=== PATIENT | male | born 1990 | race Caucasian/White ===

== ENCOUNTER 2018-05-29 10:39 | Emergency (ER) | payer OTHER, MEDICAID, SELFPAY ==
[2018-05-29 10:45] VITALS: BP 131/111; PULSE 115; RESP 25; TEMP 36.4; O2SAT 100; BMI 22.4
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
[2018-05-29 11:00] VITALS: BP 120/97; PULSE 118; RESP 20; O2SAT 99
[2018-05-29] MEDS: SODIUM CHLORIDE 0.9% 1,000 ML 1000 ML IV ×2 (11:08→11:43)
[2018-05-29 11:17] LABS: Add Manual Diff / Slide Review NO; Basophils Absolute Auto 0 /uL (0-100); Basophils Percent Auto 0.3 % (0-2); Eosinophils Absolute Auto 0 /uL (0-450); Eosinophils Percent Auto 0.1 % (2-4); Hemoglobin 15.3 g/dL (13.5-17.5); Lymphocytes Absolute Auto 800 /uL (1100-4500); Lymphocytes Percent Auto 8.8 % (25-40); Mean Corpuscular HGB Conc 34.9 % (30-36); Mean Corpuscular Hemoglobin 30.2 PG (26-34); Mean Corpuscular Volume 86.5 fL (80-100); Monocytes Absolute Auto 500 /uL (0-900); Monocytes Percent Auto 5.5 % (3-14); Neutrophils Absolute Auto 8000 /uL (1500-7000); Neutrophils Percent Auto 85.3 % (50-75); Platelet Count 201 X10^3/uL (150-400); Red Blood Cell Count 5.09 X10^6/uL (4.5-5.9); Red Cell Distribution Width 13.9 % (11.6-14.8); White Blood Cell Count 9.4 X10^3/uL (4.5-11.0)
[2018-05-29 11:26] LABS: Acetaminophen < 10 ug/mL (10-30); Alanine Aminotransferase 308 IU/L (21-72); Albumin 5.2 g/dL (3.5-5.0); Albumin Globulin Ratio 1.6 (1.0-2.8); Alkaline Phosphatase 74 U/L (38-126); Aspartate Aminotransferase 406 IU/L (17-59); BUN Creatinine Ratio 14.5 (6-22); Bilirubin Total 1.2 mg/dL (0.2-1.3); Blood Urea Nitrogen 16 mg/dL (9-20); Calcium 9.8 mg/dL (8.4-10.2); Carbon Dioxide 21 mmol/L (22-32); Chloride 101 mmol/L (98-107); Estimated Glomerular Filt Rate > 60.0 mL/min (>60); Ethanol (ETOH) < 10 mg/dL; Globulin 3.3 g/dL (1.7-4.1); Glucose 181 mg/dL (70-100); HEMOLYSIS < 15 (0-50); Potassium 5.6 mmol/L (3.4-5.1); Salicylate < 1.0 mg/dL (<20); Sodium 139 mmol/L (137-145); Total Protein 8.5 g/dL (6.3-8.2)
[2018-05-29] MEDS: ONDANSETRON 4 MG/2 ML INJ IV (11:43)
[2018-05-29 12:15] LABS: Urine Amphetamines Positive (Negative); Urine Barbiturates Negative (Negative); Urine Benzodiazepines Negative (Negative); Urine Cocaine Negative (Negative); Urine MDMA Negative (Negative); Urine Methadone Negative (Negative); Urine Methamphetamines Positive (Negative); Urine Morphine/Opi cutoff 2000 Positive (Negative); Urine Oxycodone Negative (Negative); Urine Phencyclidine Negative (Negative); Urine Tetrahydrocannabinol Negative (Negative); Urine Tricyclic Antidepressant Negative (Negative)
[2018-05-29] MEDS: METOCLOPRAMIDE 10 MG/2 ML INJ IV (12:47)
[2018-05-29 13:00] VITALS: BP 108/77; PULSE 101; RESP 12
--- NOTE | 2018-05-29 13:05 | PC.NURSE ---
S/W pt about getting help and back on bipolar meds. He is receptive to getting help
[2018-05-29 13:54] VITALS: BP 96/55; PULSE 94; RESP 11
[2018-05-29 14:30] VITALS: BP 126/77; PULSE 90; RESP 10; O2SAT 97
[2018-05-29 15:07] LABS: Reflexed Lactate in 2 Hours Y
[2018-05-29 15:20] LABS: HEMOLYSIS < 15 (0-50); Potassium 4.4 mmol/L (3.4-5.1)
[2018-05-29 15:23] LABS: Lactate 2HR (Lactic Acid Rflx) 0.9 mmol/L (0.7-2.1)
[2018-05-29 15:41] VITALS: BP 98/58; PULSE 86; RESP 20; O2SAT 98
== END 2018-05-29 15:42 | disposition home or self-care (01) ==
PROVIDERS: Emergency Provider Emergency Medicine; PCP Family Medicine
DX: T40.1X1A Poisoning by heroin, accidental (unintentional), initial encounter (principal)
CPT/HCPCS: 36415; 80053; 80305; 80320; 80329; 83605; 84132; 85025; 96361; 96374; 96375; 99284; G0480; J2405; J2765

== ENCOUNTER 2022-03-10 03:59 | Emergency (ER) | payer OTHER, MEDICAID, SELFPAY ==
[2022-03-10] VITALS (13 sets, daily range): BP systolic 141–163; BP diastolic 75–96; PULSE 76–98; RESP 6–22; TEMP 37; O2SAT 99–100; BMI 23.7
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
[2022-03-10 04:38] LABS: Add Manual Diff / Slide Review NO; Basophils Absolute Auto 0 /uL (0-100); Basophils Percent Auto 0.3 % (0-2); Eosinophils Absolute Auto 0 /uL (0-450); Eosinophils Percent Auto 0.1 % (2-4); Hematocrit 46.5 % (41-53); Hemoglobin 15.4 g/dL (13.5-17.5); Lymphocytes Absolute Auto 1400 /uL (1100-4500); Lymphocytes Percent Auto 9.4 % (25-40); Mean Corpuscular HGB Conc 33.1 % (30-36); Mean Corpuscular Hemoglobin 29.6 PG (26-34); Mean Corpuscular Volume 89.2 fL (80-100); Monocytes Absolute Auto 1000 /uL (0-900); Monocytes Percent Auto 6.9 % (3-14); Neutrophils Absolute Auto 12200 /uL (1500-7000); Neutrophils Percent Auto 83.3 % (50-75); Platelet Count 261 X10^3/uL (150-400); Red Blood Cell Count 5.22 X10^6/uL (4.5-5.9); Red Cell Distribution Width 14.1 % (11.6-14.8); White Blood Cell Count 14.7 X10^3/uL (4.5-11.0)
[2022-03-10 04:47] LABS: INR 1.1 (0.9-1.3); Prothrombin Time 12.8 SECONDS (10.1-12.7)
[2022-03-10 04:51] LABS: Alanine Aminotransferase 42 IU/L (<50); Albumin 4.7 g/dL (3.5-5.0); Albumin Globulin Ratio 1.3 (1.0-2.8); Alkaline Phosphatase 80 U/L (38-126); Aspartate Aminotransferase 38 IU/L (17-59); Bilirubin Total 0.7 mg/dL (0.2-1.3); Blood Urea Nitrogen 10 mg/dL (9-20); Calcium 9.4 mg/dL (8.4-10.2); Carbon Dioxide 26 mmol/L (22-32); Chloride 101 mmol/L (98-107); Creatine Kinase 93 U/L (55-170); Estimated Glomerular Filt Rate > 60 mL/min (>60); Globulin 3.6 g/dL (1.7-4.1); Glucose 101 mg/dL (70-100); HEMOLYSIS < 15 (0-50); Potassium 3.9 mmol/L (3.4-5.1); Sodium 139 mmol/L (137-145); Total Protein 8.3 g/dL (6.3-8.2)
[2022-03-10 04:55] LABS: Lactate (Lactic Acid) 1.7 mmol/L (0.7-2.1)
[2022-03-10] MEDS: TET,DIPH,PERTUSS(ACELL),VAC/PF 0.5 ML SYRINGE IM (05:00)
[2022-03-10 05:02] LABS: Troponin I < 0.012 ng/mL (0.01-0.034)
[2022-03-10] MEDS: CEFAZOLIN VIAL 1 GM in SODIUM CHLORIDE 0.9% 100 ML IV (05:02)
--- NOTE | 2022-03-10 05:15 | PC.NURSE ---
0410: see trauma activation flowsheet
[2022-03-10 05:24] LABS: COVID19 -Nasal RAPID Negative (Negative)
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
[2022-03-10] MEDS: KETOROLAC 30 MG/ML VIAL 15 MG IV (08:23)
[2022-03-10] MEDS: BACITRACIN OINT 0.9 GM PCKT 1 APPLIC TOP (08:24)
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
== END 2022-03-10 08:58 | disposition home or self-care (01) ==
LOC: ED 04:36 → AC 05:10 → ED 08:19
PROVIDERS: Emergency Provider Emergency Medicine; PCP Family Medicine
DX: S01.21XA Laceration without foreign body of nose, initial encounter (principal); S00.83XA Contusion of other part of head, initial encounter; S02.2XXA Fracture of nasal bones, initial encounter for closed fracture; S31.111A Laceration without foreign body of abdominal wall, left upper quadrant without penetration into peritoneal cavity, initial encounter; X99.1XXA Assault by knife, initial encounter; Z23 Encounter for immunization
CPT/HCPCS: 13152; 36415; 70450; 70486; 71045; 71260; 72125; 74177; 80053; 82550; 83605; 84484; 85025; 85610; 86850; 86900; 86901; 87635; 90471; 96365; 96366; 96375; 99285; 99291; 99292; C9803; 90715; J0690; J1885; Q9967

== ENCOUNTER 2022-05-20 11:19 | Emergency (ER) | payer OTHER, MEDICAID, SELFPAY ==
[2022-05-20] VITALS (54 sets, daily range): BP systolic 103–140; BP diastolic 51–84; PULSE 67–110; RESP 11–29; TEMP 36.7; O2SAT 76–100; BMI 25.0
--- NOTE | 2022-05-20 11:42 | DI.RAD.S_ITS ---
PROCEDURE: XR HAND RT MIN 3V INDICATIONS: infection after IV injection eval for FB TECHNIQUE: 3 views of the hand(s) acquired. COMPARISON: None. FINDINGS: Bones: No fractures or dislocations. Carpal bones are normally aligned. No suspicious bony lesions. No bony erosive changes. Soft tissues: Significant dorsal right hand soft tissue swelling is seen. No suspicious soft tissue calcifications. IMPRESSION: No right hand fracture or dislocation. No radiographic evidence of osteomyelitis. Dorsal soft tissue swelling. No radiopaque foreign body is seen. Dictated by: Jony Lou M.D. on 05/20/2022 at 11:12 Approved by: Jony Lou M.D. on 05/20/2022 at 11:15
[2022-05-20 11:47] LABS: Add Manual Diff / Slide Review NO; Basophils Absolute Auto 100 /uL (0-100); Basophils Percent Auto 0.6 % (0-2); Eosinophils Absolute Auto 100 /uL (0-450); Eosinophils Percent Auto 0.6 % (2-4); Hematocrit 45.6 % (41-53); Hemoglobin 15.4 g/dL (13.5-17.5); Lymphocytes Absolute Auto 1900 /uL (1100-4500); Lymphocytes Percent Auto 16.3 % (25-40); Mean Corpuscular HGB Conc 33.7 % (30-36); Mean Corpuscular Hemoglobin 29.3 PG (26-34); Mean Corpuscular Volume 87.1 fL (80-100); Monocytes Absolute Auto 1400 /uL (0-900); Neutrophils Absolute Auto 8100 /uL (1500-7000); Neutrophils Percent Auto 70.5 % (50-75); Platelet Count 224 X10^3/uL (150-400); Red Blood Cell Count 5.23 X10^6/uL (4.5-5.9); Red Cell Distribution Width 13.6 % (11.6-14.8); White Blood Cell Count 11.5 X10^3/uL (4.5-11.0)
--- NOTE | 2022-05-20 11:47 | ED_ITS ---
HPI - Skin/Abscess/Foreign Bdy <Misael Davidson DO - Last Filed: 05/20/22 18:23> General Chief complaint: Skin/Abscess/Foreign Body Stated complaint: RT hand swelling thinks abcess T-2 Time Seen by Provider: 05/20/22 11:29 Source: patient Mode of arrival: Ambulatory Limitations: no limitations History of Present Illness HPI narrative: Patient is a 31-year-old male who is here for evaluation of swelling and redness to his right hand. He states he started noticing it last evening and is progressively worse since then. He thinks that it is because he injected himself with IV drug. He denies any fevers. Has not taken anything for the symptoms prior to arrival. Related Data Home Medications Medication Instructions Recorded Confirmed diazepam 2 mg tablet (Valium) 5 mg PO BID ##0 11/07/16 Previous Rx's Medication Instructions Recorded diazepam 5 mg tablet 5 mg PO BID #5 tabs 11/07/16 amoxicillin 875 mg-potassium 1 tab PO Q12H #20 tabs 03/10/22 clavulanate 125 mg tablet bacitracin 500 unit/gram topical 1 applic topical Q8H #28 grams 03/10/22 ointment ketorolac 10 mg tablet 10 mg PO Q6H PRN pain #14 tabs 03/10/22 ondansetron 4 mg disintegrating 4 mg PO TID-QID PRN nausea and 03/10/22 tablet vomiting #10 tabs clindamycin HCl 300 mg capsule 300 mg PO QID 7 days #28 caps 05/20/22 Allergies Allergy/AdvReac Type Severity Reaction Status Date / Time No Known Drug Allergies Allergy Verified 05/20/22 11:44 Review of Systems <Misael Davidson DO - Last Filed: 05/20/22 18:23> Musculoskeletal Musculoskeletal: Reports system reviewed and no additional complaints, except as documented Integumentary/Breasts Skin/Breast: Reports system reviewed and no additional complaints, except as documented Neurologic Neurologic: Reports system reviewed and no additional complaints, except as documented Hematologic/Lymphatic On Anticoagulants: No Patient History <Misael Davidson DO - Last Filed: 05/20/22 18:23> Medical History Track bailey due to intravenous drug abuse Social History Smoking Status: Current every day smoker substance use type: heroin Smoking Status: Current every day smoker alcohol intake frequency: 3 or more drinks per day Alcohol type: hard liquor Substance Use Type: marijuana, sedatives, IV drugs and methamphetamine Exam <Misael Davidson DO - Last Filed: 05/20/22 18:23> Initial Vital Signs Initial Vital Signs: Vital Signs Temperature 98.1 F 05/20/22 11:20 Pulse Rate 110 H 05/20/22 11:20 Respiratory Rate 20 05/20/22 11:20 Blood Pressure 140/84 05/20/22 11:20 Pulse Oximetry 97 05/20/22 11:20 Oxygen Delivery Method Room Air 05/20/22 11:20 Const General: cooperative, comfortable and No ill appearing HENMT Head: normal to inspection Cardio Pulses: radial pulses present on the right Skin Other: Redness located on the dorsum of the right hand that extends just above the wrist. No blisters. No vesicles. Neuro Sensory Exam: no sensory deficits noted Extrem Other: Redness and swelling to the right hand <Car Knott DO - Last Filed: 05/21/22 02:29> Initial Vital Signs Initial Vital Signs: Vital Signs Temperature 98.1 F 05/20/22 11:20 Pulse Rate 110 H 05/20/22 11:20 Respiratory Rate 20 05/20/22 11:20 Blood Pressure 140/84 05/20/22 11:20 Pulse Oximetry 97 05/20/22 11:20 Oxygen Delivery Method Room Air 05/20/22 11:20 Course <Misael Davidson DO - Last Filed: 05/20/22 18:23> Orders Ordered: Discontinued Medications Acetaminophen (Acetaminophen 325 Mg Tablet) 650 mg PO NOW ONE Stop: 05/20/22 11:53 Last Admin: 05/20/22 12:04 Dose: 650 mg Documented By: CHUCK Acetaminophen (Acetaminophen 325 Mg Tablet) 650 mg PO NOW ONE Stop: 05/21/22 00:39 Last Admin: 05/21/22 00:46 Dose: 650 mg Documented By: PARI Sodium Chloride (Normal Saline 0.9%) 1,000 mls @ 1,000 mls/hr IV BOLUS ONE Stop: 05/20/22 12:33 Last Infusion: 05/20/22 14:07 Dose: 0 mls/hr Documented By: CHUCK(2) Admin: 05/20/22 11:55 Dose: 1,000 mls/hr Documented By: CHUCK Clindamycin Phosphate (Cleocin) 900 mg in 50 mls @ 50 mls/hr IV NOW ONE Stop: 05/20/22 12:43 Last Infusion: 05/20/22 14:07 Dose: 0 mls/hr Documented By: CHUCK(2) Admin: 05/20/22 11:55 Dose: 50 mls/hr Documented By: CHUCK Phenobarbital (Phenobarbital 65 Mg/Ml Vial) 260 mg IV NOW ONE Stop: 05/20/22 15:49 Last Admin: 05/20/22 16:25 Dose: 260 mg Documented By: CHUCK Vital Signs Vital signs: Vital Signs - 8 hr 05/20/22 18:30 05/20/22 18:30 05/20/22 18:45 Pulse Rate 78 Respiratory Rate 19 Blood Pressure 111/56 L 115/53 L Pulse Oximetry 100 05/20/22 18:45 05/20/22 19:00 05/20/22 19:00 Pulse Rate 79 77 Respiratory Rate 20 15 Blood Pressure 115/58 L Pulse Oximetry 98 92 05/20/22 19:15 05/20/22 19:15 05/20/22 19:30 Pulse Rate 80 Respiratory Rate 16 Blood Pressure 103/51 L 114/72 Pulse Oximetry 76 L 05/20/22 19:30 05/20/22 19:45 05/20/22 19:45 Pulse Rate 76 78 Respiratory Rate 29 H 14 Blood Pressure 107/53 L Pulse Oximetry 99 97 05/20/22 20:00 05/20/22 20:00 05/20/22 20:15 Pulse Rate 74 74 Respiratory Rate 14 16 Blood Pressure 121/58 L Pulse Oximetry 97 98 05/20/22 20:15 05/20/22 20:30 05/20/22 20:30 Pulse Rate 77 Respiratory Rate 13 Blood Pressure 130/62 122/65 Pulse Oximetry 97 05/20/22 20:45 05/20/22 20:45 05/20/22 21:00 Pulse Rate 71 Respiratory Rate 17 Blood Pressure 121/62 119/62 Pulse Oximetry 98 05/20/22 21:00 05/20/22 21:15 05/20/22 21:15 Pulse Rate 70 70 Respiratory Rate 13 13 Blood Pressure 135/61 Pulse Oximetry 98 99 05/20/22 21:30 05/20/22 21:30 05/20/22 21:45 Pulse Rate 67 80 Respiratory Rate 13 14 Blood Pressure 109/55 L Pulse Oximetry 99 99 05/20/22 21:45 05/20/22 22:00 05/20/22 22:00 Pulse Rate 79 Respiratory Rate 13 Blood Pressure 124/70 123/76 Pulse Oximetry 99 05/20/22 22:15 05/20/22 22:15 05/20/22 22:30 Pulse Rate 80 Respiratory Rate 11 L Blood Pressure 128/77 126/75 Pulse Oximetry 99 05/20/22 22:30 05/20/22 22:45 05/20/22 22:45 Pulse Rate 70 70 Respiratory Rate 13 14 Blood Pressure 128/76 Pulse Oximetry 97 98 05/20/22 23:00 05/20/22 23:00 05/20/22 23:15 Pulse Rate 74 75 Respiratory Rate 13 18 Blood Pressure 125/75 Pulse Oximetry 99 98 05/20/22 23:15 05/20/22 23:30 05/20/22 23:30 Pulse Rate 70 Respiratory Rate 13 Blood Pressure 128/75 124/80 Pulse Oximetry 98 05/20/22 23:45 05/20/22 23:45 05/21/22 00:00 Pulse Rate 76 Respiratory Rate 17 Blood Pressure 127/77 122/77 Pulse Oximetry 98 05/21/22 00:00 05/21/22 00:15 05/21/22 00:15 Pulse Rate 73 87 Respiratory Rate 16 19 Blood Pressure 130/82 Pulse Oximetry 98 100 05/21/22 00:32 05/21/22 01:00 05/21/22 01:32 Pulse Rate 90 77 85 Respiratory Rate 16 Blood Pressure Pulse Oximetry 91 100 97 <Car Knott, DO - Last Filed: 05/21/22 02:29> Orders Ordered: Discontinued Medications Acetaminophen (Acetaminophen 325 Mg Tablet) 650 mg PO NOW ONE Stop: 05/20/22 11:53 Last Admin: 05/20/22 12:04 Dose: 650 mg Documented By: CHUCK Acetaminophen (Acetaminophen 325 Mg Tablet) 650 mg PO NOW ONE Stop: 05/21/22 00:39 Last Admin: 05/21/22 00:46 Dose: 650 mg Documented By: PARI Sodium Chloride (Normal Saline 0.9%) 1,000 mls @ 1,000 mls/hr IV BOLUS ONE Stop: 05/20/22 12:33 Last Infusion: 05/20/22 14:07 Dose: 0 mls/hr Documented By: CHUCK(2) Admin: 05/20/22 11:55 Dose: 1,000 mls/hr Documented By: CHUCK Clindamycin Phosphate (Cleocin) 900 mg in 50 mls @ 50 mls/hr IV NOW ONE Stop: 05/20/22 12:43 Last Infusion: 05/20/22 14:07 Dose: 0 mls/hr Documented By: CHUCK(2) Admin: 05/20/22 11:55 Dose: 50 mls/hr Documented By: CHUCK Phenobarbital (Phenobarbital 65 Mg/Ml Vial) 260 mg IV NOW ONE Stop: 05/20/22 15:49 Last Admin: 05/20/22 16:25 Dose: 260 mg Documented By: CHUCK Vital Signs Vital signs: Vital Signs - 8 hr 05/20/22 18:30 05/20/22 18:30 05/20/22 18:45 Pulse Rate 78 Respiratory Rate 19 Blood Pressure 111/56 L 115/53 L Pulse Oximetry 100 05/20/22 18:45 05/20/22 19:00 05/20/22 19:00 Pulse Rate 79 77 Respiratory Rate 20 15 Blood Pressure 115/58 L Pulse Oximetry 98 92 05/20/22 19:15 05/20/22 19:15 05/20/22 19:30 Pulse Rate 80 Respiratory Rate 16 Blood Pressure 103/51 L 114/72 Pulse Oximetry 76 L 05/20/22 19:30 05/20/22 19:45 05/20/22 19:45 Pulse Rate 76 78 Respiratory Rate 29 H 14 Blood Pressure 107/53 L Pulse Oximetry 99 97 05/20/22 20:00 05/20/22 20:00 05/20/22 20:15 Pulse Rate 74 74 Respiratory Rate 14 16 Blood Pressure 121/58 L Pulse Oximetry 97 98 05/20/22 20:15 05/20/22 20:30 05/20/22 20:30 Pulse Rate 77 Respiratory Rate 13 Blood Pressure 130/62 122/65 Pulse Oximetry 97 05/20/22 20:45 05/20/22 20:45 05/20/22 21:00 Pulse Rate 71 Respiratory Rate 17 Blood Pressure 121/62 119/62 Pulse Oximetry 98 05/20/22 21:00 05/20/22 21:15 05/20/22 21:15 Pulse Rate 70 70 Respiratory Rate 13 13 Blood Pressure 135/61 Pulse Oximetry 98 99 05/20/22 21:30 05/20/22 21:30 05/20/22 21:45 Pulse Rate 67 80 Respiratory Rate 13 14 Blood Pressure 109/55 L Pulse Oximetry 99 99 05/20/22 21:45 05/20/22 22:00 05/20/22 22:00 Pulse Rate 79 Respiratory Rate 13 Blood Pressure 124/70 123/76 Pulse Oximetry 99 05/20/22 22:15 05/20/22 22:15 05/20/22 22:30 Pulse Rate 80 Respiratory Rate 11 L Blood Pressure 128/77 126/75 Pulse Oximetry 99 05/20/22 22:30 05/20/22 22:45 05/20/22 22:45 Pulse Rate 70 70 Respiratory Rate 13 14 Blood Pressure 128/76 Pulse Oximetry 97 98 05/20/22 23:00 05/20/22 23:00 05/20/22 23:15 Pulse Rate 74 75 Respiratory Rate 13 18 Blood Pressure 125/75 Pulse Oximetry 99 98 05/20/22 23:15 05/20/22 23:30 05/20/22 23:30 Pulse Rate 70 Respiratory Rate 13 Blood Pressure 128/75 124/80 Pulse Oximetry 98 05/20/22 23:45 05/20/22 23:45 05/21/22 00:00 Pulse Rate 76 Respiratory Rate 17 Blood Pressure 127/77 122/77 Pulse Oximetry 98 05/21/22 00:00 05/21/22 00:15 05/21/22 00:15 Pulse Rate 73 87 Respiratory Rate 16 19 Blood Pressure 130/82 Pulse Oximetry 98 100 05/21/22 00:32 05/21/22 01:00 05/21/22 01:32 Pulse Rate 90 77 85 Respiratory Rate 16 Blood Pressure Pulse Oximetry 91 100 97 MDM - Skin/Abscess/Foreign Bdy <Misael Davidson DO - Last Filed: 05/20/22 18:23> Lab Data Attestation: I reviewed the patient's lab results. 05/20/22 11:35 05/20/22 11:35 Labs: Lab Results 05/20/22 05/20/22 05/20/22 Range/Units 11:35 11:35 11:35 WBC 11.5 H (4.5-11.0) X10^3/uL RBC 5.23 (4.5-5.9) X10^6/uL Hgb 15.4 (13.5-17.5) g/dL Hct 45.6 (41-53) % MCV 87.1 (80-100) fL MCH 29.3 (26-34) PG MCHC 33.7 (30-36) % RDW 13.6 (11.6-14.8) % Plt Count 224 (150-400) X10^3/uL Neut % (Auto) 70.5 (50-75) % Lymph % (Auto) 16.3 L (25-40) % [place] % (Auto) 12.0 (3-14) % Eos % (Auto) 0.6 L (2-4) % Baso % (Auto) 0.6 (0-2) % Neut # (Auto) 8100 H (7283-0765) /uL Lymph # (Auto) 1900 (7766-3751) /uL [place] # (Auto) 1400 H (0-900) /uL Eos # (Auto) 100 (0-450) /uL Baso # (Auto) 100 (0-100) /uL PT Cancelled INR Cancelled APTT Cancelled Sodium 135 L (137-145) mmol/L Potassium 3.9 (3.4-5.1) mmol/L Chloride 100 (98-107) mmol/L Carbon Dioxide 28 (22-32) mmol/L BUN 10 (9-20) mg/dL Creatinine 0.83 (0.66-1.25) mg/dL Estimated GFR > 60 (>60) mL/min BUN/Creatinine Ratio 12.0 (6-22) Glucose 90 (70-100) mg/dL Lactate (0.7-2.1) mmol/L Calcium 8.8 (8.4-10.2) mg/dL Total Bilirubin 0.8 (0.2-1.3) mg/dL AST 30 (17-59) IU/L ALT 33 (<50) IU/L Alkaline Phosphatase 68 (38-126) U/L Total Protein 8.0 (6.3-8.2) g/dL Albumin 4.4 (3.5-5.0) g/dL Globulin 3.6 (1.7-4.1) g/dL Albumin/Globulin Ratio 1.2 (1.0-2.8) Lipase 60 (23-300) U/L Procalcitonin 0.06 (<0.5) ng/mL U Opiates 300ng/mL cut (Negative) Ur Oxycodone Screen (Negative) Urine Methadone Screen (Negative) Ur Barbiturates Screen (Negative) U Tricyclic Antidepress (Negative) Ur Phencyclidine Scrn (Negative) Ur Amphetamines Screen (Negative) U Methamphetamines Scrn (Negative) Ur MDMA Scrn (Ecstasy) (Negative) U Benzodiazepines Scrn (Negative) Urine Cocaine Screen (Negative) U Marijuana (THC) Screen (Negative) Ethyl Alcohol SARS-CoV-2 (PCR) (Negative) 05/20/22 05/20/22 05/20/22 Range/Units 11:35 11:35 11:35 WBC (4.5-11.0) X10^3/uL RBC (4.5-5.9) X10^6/uL Hgb (13.5-17.5) g/dL Hct (41-53) % MCV (80-100) fL MCH (26-34) PG MCHC (30-36) % RDW (11.6-14.8) % Plt Count (150-400) X10^3/uL Neut % (Auto) (50-75) % Lymph % (Auto) (25-40) % [place] % (Auto) (3-14) % Eos % (Auto) (2-4) % Baso % (Auto) (0-2) % Neut # (Auto) (1335-3401) /uL Lymph # (Auto) (9370-6016) /uL [place] # (Auto) (0-900) /uL Eos # (Auto) (0-450) /uL Baso # (Auto) (0-100) /uL PT INR APTT Sodium (137-145) mmol/L Potassium (3.4-5.1) mmol/L Chloride (98-107) mmol/L Carbon Dioxide (22-32) mmol/L BUN (9-20) mg/dL Creatinine (0.66-1.25) mg/dL Estimated GFR (>60) mL/min BUN/Creatinine Ratio (6-22) Glucose (70-100) mg/dL Lactate 1.7 (0.7-2.1) mmol/L Calcium (8.4-10.2) mg/dL Total Bilirubin (0.2-1.3) mg/dL AST (17-59) IU/L ALT (<50) IU/L Alkaline Phosphatase (38-126) U/L Total Protein (6.3-8.2) g/dL Albumin (3.5-5.0) g/dL Globulin (1.7-4.1) g/dL Albumin/Globulin Ratio (1.0-2.8) Lipase (23-300) U/L Procalcitonin (<0.5) ng/mL U Opiates 300ng/mL cut (Negative) Ur Oxycodone Screen (Negative) Urine Methadone Screen (Negative) Ur Barbiturates Screen (Negative) U Tricyclic Antidepress (Negative) Ur Phencyclidine Scrn (Negative) Ur Amphetamines Screen (Negative) U Methamphetamines Scrn (Negative) Ur MDMA Scrn (Ecstasy) (Negative) U Benzodiazepines Scrn (Negative) Urine Cocaine Screen (Negative) U Marijuana (THC) Screen (Negative) Ethyl Alcohol Cancelled SARS-CoV-2 (PCR) Negative (Negative) 05/20/22 05/20/22 Range/Units 11:37 11:40 WBC (4.5-11.0) X10^3/uL RBC (4.5-5.9) X10^6/uL Hgb (13.5-17.5) g/dL Hct (41-53) % MCV (80-100) fL MCH (26-34) PG MCHC (30-36) % RDW (11.6-14.8) % Plt Count (150-400) X10^3/uL Neut % (Auto) (50-75) % Lymph % (Auto) (25-40) % [place] % (Auto) (3-14) % Eos % (Auto) (2-4) % Baso % (Auto) (0-2) % Neut # (Auto) (2780-9039) /uL Lymph # (Auto) (3195-2634) /uL [place] # (Auto) (0-900) /uL Eos # (Auto) (0-450) /uL Baso # (Auto) (0-100) /uL PT INR APTT Sodium (137-145) mmol/L Potassium (3.4-5.1) mmol/L Chloride (98-107) mmol/L Carbon Dioxide (22-32) mmol/L BUN (9-20) mg/dL Creatinine (0.66-1.25) mg/dL Estimated GFR (>60) mL/min BUN/Creatinine Ratio (6-22) Glucose (70-100) mg/dL Lactate (0.7-2.1) mmol/L Calcium (8.4-10.2) mg/dL Total Bilirubin (0.2-1.3) mg/dL AST (17-59) IU/L ALT (<50) IU/L Alkaline Phosphatase (38-126) U/L Total Protein (6.3-8.2) g/dL Albumin (3.5-5.0) g/dL Globulin (1.7-4.1) g/dL Albumin/Globulin Ratio (1.0-2.8) Lipase (23-300) U/L Procalcitonin (<0.5) ng/mL U Opiates 300ng/mL cut Negative (Negative) Ur Oxycodone Screen Negative (Negative) Urine Methadone Screen Negative (Negative) Ur Barbiturates Screen Negative (Negative) U Tricyclic Antidepress Negative (Negative) Ur Phencyclidine Scrn Negative (Negative) Ur Amphetamines Screen Positive H (Negative) U Methamphetamines Scrn Positive H (Negative) Ur MDMA Scrn (Ecstasy) Negative (Negative) U Benzodiazepines Scrn Positive H (Negative) Urine Cocaine Screen Negative (Negative) U Marijuana (THC) Screen Negative (Negative) Ethyl Alcohol < 10 SARS-CoV-2 (PCR) (Negative) Imaging Data Extremity x-ray #1: Radiologist's Impression: PROCEDURE:? XR HAND RT MIN 3V ? INDICATIONS:? infection after IV injection eval for FB ? TECHNIQUE:? 3 views of the hand(s) acquired.? ? COMPARISON:? None. ? FINDINGS:? ? Bones:? No fractures or dislocations.? Carpal bones are normally aligned.? No suspicious bony lesions.? No bony erosive changes. ? Soft tissues:? Significant dorsal right hand soft tissue swelling is seen.? No suspicious soft tissue calcifications.? ? ? IMPRESSION:? No right hand fracture or dislocation.? No radiographic evidence of osteomyelitis.? Dorsal soft tissue swelling.? No radiopaque foreign body is seen. MDM Narrative Medical decision making narrative: Patient does an obvious cellulitis of his right hand. There is no induration. Low suspicion for abscess. There was no foreign body noted on the x-ray. The redness was outlined. It there is no streaking up his arm. He is nontoxic appearing. Was given antibiotics here in the emergency department. Patient is nontoxic. No indication for admission to the hospital today. He is medically cleared. Alcohol level was 0. Patient does admit to taking methamphetamine and also benzos and this is what is positive in his UDS. Patient states he is interested in seeking help for his substance abuse. Was seen by social work. Patient is medically cleared. Will attempt to find placement but he will need ongoing oral antibiotics for his hand cellulitis. Care turned over to Dr. Knott to continue to observe until transfer discharge. <Car Knott, DO - Last Filed: 05/21/22 02:29> Lab Data Labs: Lab Results 05/20/22 05/20/22 05/20/22 Range/Units 11:35 11:35 11:35 WBC 11.5 H (4.5-11.0) X10^3/uL RBC 5.23 (4.5-5.9) X10^6/uL Hgb 15.4 (13.5-17.5) g/dL Hct 45.6 (41-53) % MCV 87.1 (80-100) fL MCH 29.3 (26-34) PG MCHC 33.7 (30-36) % RDW 13.6 (11.6-14.8) % Plt Count 224 (150-400) X10^3/uL Neut % (Auto) 70.5 (50-75) % Lymph % (Auto) 16.3 L (25-40) % [place] % (Auto) 12.0 (3-14) % Eos % (Auto) 0.6 L (2-4) % Baso % (Auto) 0.6 (0-2) % Neut # (Auto) 8100 H (0250-8096) /uL Lymph # (Auto) 1900 (7533-1276) /uL [place] # (Auto) 1400 H (0-900) /uL Eos # (Auto) 100 (0-450) /uL Baso # (Auto) 100 (0-100) /uL PT Cancelled INR Cancelled APTT Cancelled Sodium 135 L (137-145) mmol/L Potassium 3.9 (3.4-5.1) mmol/L Chloride 100 (98-107) mmol/L Carbon Dioxide 28 (22-32) mmol/L BUN 10 (9-20) mg/dL Creatinine 0.83 (0.66-1.25) mg/dL Estimated GFR > 60 (>60) mL/min BUN/Creatinine Ratio 12.0 (6-22) Glucose 90 (70-100) mg/dL Lactate (0.7-2.1) mmol/L Calcium 8.8 (8.4-10.2) mg/dL Total Bilirubin 0.8 (0.2-1.3) mg/dL AST 30 (17-59) IU/L ALT 33 (<50) IU/L Alkaline Phosphatase 68 (38-126) U/L Total Protein 8.0 (6.3-8.2) g/dL Albumin 4.4 (3.5-5.0) g/dL Globulin 3.6 (1.7-4.1) g/dL Albumin/Globulin Ratio 1.2 (1.0-2.8) Lipase 60 (23-300) U/L Procalcitonin 0.06 (<0.5) ng/mL U Opiates 300ng/mL cut (Negative) Ur Oxycodone Screen (Negative) Urine Methadone Screen (Negative) Ur Barbiturates Screen (Negative) U Tricyclic Antidepress (Negative) Ur Phencyclidine Scrn (Negative) Ur Amphetamines Screen (Negative) U Methamphetamines Scrn (Negative) Ur MDMA Scrn (Ecstasy) (Negative) U Benzodiazepines Scrn (Negative) Urine Cocaine Screen (Negative) U Marijuana (THC) Screen (Negative) Ethyl Alcohol SARS-CoV-2 (PCR) (Negative) 05/20/22 05/20/22 05/20/22 Range/Units 11:35 11:35 11:35 WBC (4.5-11.0) X10^3/uL RBC (4.5-5.9) X10^6/uL Hgb (13.5-17.5) g/dL Hct (41-53) % MCV (80-100) fL MCH (26-34) PG MCHC (30-36) % RDW (11.6-14.8) % Plt Count (150-400) X10^3/uL Neut % (Auto) (50-75) % Lymph % (Auto) (25-40) % [place] % (Auto) (3-14) % Eos % (Auto) (2-4) % Baso % (Auto) (0-2) % Neut # (Auto) (3004-1981) /uL Lymph # (Auto) (7939-2924) /uL [place] # (Auto) (0-900) /uL Eos # (Auto) (0-450) /uL Baso # (Auto) (0-100) /uL PT INR APTT Sodium (137-145) mmol/L Potassium (3.4-5.1) mmol/L Chloride (98-107) mmol/L Carbon Dioxide (22-32) mmol/L BUN (9-20) mg/dL Creatinine (0.66-1.25) mg/dL Estimated GFR (>60) mL/min BUN/Creatinine Ratio (6-22) Glucose (70-100) mg/dL Lactate 1.7 (0.7-2.1) mmol/L Calcium (8.4-10.2) mg/dL Total Bilirubin (0.2-1.3) mg/dL AST (17-59) IU/L ALT (<50) IU/L Alkaline Phosphatase (38-126) U/L Total Protein (6.3-8.2) g/dL Albumin (3.5-5.0) g/dL Globulin (1.7-4.1) g/dL Albumin/Globulin Ratio (1.0-2.8) Lipase (23-300) U/L Procalcitonin (<0.5) ng/mL U Opiates 300ng/mL cut (Negative) Ur Oxycodone Screen (Negative) Urine Methadone Screen (Negative) Ur Barbiturates Screen (Negative) U Tricyclic Antidepress (Negative) Ur Phencyclidine Scrn (Negative) Ur Amphetamines Screen (Negative) U Methamphetamines Scrn (Negative) Ur MDMA Scrn (Ecstasy) (Negative) U Benzodiazepines Scrn (Negative) Urine Cocaine Screen (Negative) U Marijuana (THC) Screen (Negative) Ethyl Alcohol Cancelled SARS-CoV-2 (PCR) Negative (Negative) 05/20/22 05/20/22 Range/Units 11:37 11:40 WBC (4.5-11.0) X10^3/uL RBC (4.5-5.9) X10^6/uL Hgb (13.5-17.5) g/dL Hct (41-53) % MCV (80-100) fL MCH (26-34) PG MCHC (30-36) % RDW (11.6-14.8) % Plt Count (150-400) X10^3/uL Neut % (Auto) (50-75) % Lymph % (Auto) (25-40) % [place] % (Auto) (3-14) % Eos % (Auto) (2-4) % Baso % (Auto) (0-2) % Neut # (Auto) (6611-0773) /uL Lymph # (Auto) (0929-9923) /uL [place] # (Auto) (0-900) /uL Eos # (Auto) (0-450) /uL Baso # (Auto) (0-100) /uL PT INR APTT Sodium (137-145) mmol/L Potassium (3.4-5.1) mmol/L Chloride (98-107) mmol/L Carbon Dioxide (22-32) mmol/L BUN (9-20) mg/dL Creatinine (0.66-1.25) mg/dL Estimated GFR (>60) mL/min BUN/Creatinine Ratio (6-22) Glucose (70-100) mg/dL Lactate (0.7-2.1) mmol/L Calcium (8.4-10.2) mg/dL Total Bilirubin (0.2-1.3) mg/dL AST (17-59) IU/L ALT (<50) IU/L Alkaline Phosphatase (38-126) U/L Total Protein (6.3-8.2) g/dL Albumin (3.5-5.0) g/dL Globulin (1.7-4.1) g/dL Albumin/Globulin Ratio (1.0-2.8) Lipase (23-300) U/L Procalcitonin (<0.5) ng/mL U Opiates 300ng/mL cut Negative (Negative) Ur Oxycodone Screen Negative (Negative) Urine Methadone Screen Negative (Negative) Ur Barbiturates Screen Negative (Negative) U Tricyclic Antidepress Negative (Negative) Ur Phencyclidine Scrn Negative (Negative) Ur Amphetamines Screen Positive H (Negative) U Methamphetamines Scrn Positive H (Negative) Ur MDMA Scrn (Ecstasy) Negative (Negative) U Benzodiazepines Scrn Positive H (Negative) Urine Cocaine Screen Negative (Negative) U Marijuana (THC) Screen Negative (Negative) Ethyl Alcohol < 10 SARS-CoV-2 (PCR) (Negative) MDM Narrative Medical decision making narrative: Patient does an obvious cellulitis of his right hand. There is no induration. Low suspicion for abscess. There was no foreign body noted on the x-ray. The redness was outlined. It there is no streaking up his arm. He is nontoxic appearing. Was given antibiotics here in the emergency department. Patient is nontoxic. No indication for admission to the hospital today. He is medically cleared. Alcohol level was 0. Patient does admit to taking methamphetamine and also benzos and this is what is positive in his UDS. Patient states he is interested in seeking help for his substance abuse. Was seen by social work. Patient is medically cleared. Will attempt to find placement but he will need ongoing oral antibiotics for his hand cellulitis. Care turned over to Dr. Knott to continue to observe until transfer discharge. [1830] (Nikos) Patient received in sign out from [Lety]. I have reviewed the clinical course and performed an independent history and physical exam. Patient currently resting comfortably CC: 31-year-old male with cellulitis of hand without evidence of abscess Complicating co-morbidities: Illicit drug use Data collected from: Patient Medical records reviewed: Prior notes reviewed in our EMR Differential considered, but not limited to: Hand cellulitis versus abscess versus other Exam documented above, pertinent findings include: And swelling without fluctuance or induration Lab Test results independently reviewed as above. Pertinent findings: Slight leukocytosis without left shift, electrolytes, LFTs, renal function within normal range, urine tox positive for amphetamines, methamphetamines, benzodiazepines Imaging studies independently reviewed: No bony abnormality, no radiographic evidence of osteomyelitis, no radiopaque foreign bodies Consultations: Treatments: Saline, clindamycin, Tylenol, phenobarbital Re-evaluations: Resting comfortably Discussion: With the course of the visit the patient is no longer interested in presenting to a detox facility. He is awake, alert and oriented, he demonstrates clear capacity to make his own decisions and understands the pros and cons of this decision-making process. He is speaking clearly and able to walk a straight line with no difficulty. He understands the importance of picking up the prescriptions for antibiotics that have been sent to the pharmacy of his choice. Understands that he may return here immediately for any change in his plan moving forward regarding assistance with placement into a tox facility Disposition: see below, along with detailed discharge instructions that have been reviewed with patient as well as indications for ED re-evaluation and additional outpatient follow up Discharge Plan Departure Patient Disposition: Home Clinical Impression: Cellulitis Instructions: DI for Cellulitis -- Adult Activity Restrictions/Additional Instructions: A prescription for antibiotics was [facility] to [facility] [facility] in [place] per your request. Be sure that you start taking it as directed. You can wash your hands like normal. If the redness starts to extend outside of the line that was drawn today or if you start to have other new symptoms please return to the [facility] department for further evaluation. Prescriptions: New clindamycin HCl 300 mg capsule 300 mg PO QID 7 Days Qty: 28 0RF No Action diazepam [Valium] 2 MG tablet 5 mg PO BID Qty: 0 diazepam 5 MG tablet 5 mg PO BID Qty: 5 0RF ketorolac 10 mg tablet 10 mg PO Q6H PRN (Reason: pain) Qty: 14 0RF ondansetron 4 mg tablet,disintegrating 4 mg PO TID-QID PRN (Reason: nausea and vomiting) Qty: 10 0RF amoxicillin-pot clavulanate 875-125 mg tablet 1 tab PO Q12H Qty: 20 0RF bacitracin 500 unit/gram ointment 1 applic topical Q8H Qty: 28 0RF Referrals: Miscellaneous,Doctor, MD [Primary Care Provider] - Stand Alone Forms: Patient Portal/API
[2022-05-20] MEDS: CLINDAMYCIN 900 MG/50 ML PIGGYBACK 50 MG IV (11:55)
[2022-05-20] MEDS: SODIUM CHLORIDE 0.9% 1,000 ML 1000 ML IV (11:55)
[2022-05-20 12:01] LABS: COVID19 -Nasal RAPID Negative (Negative); Lactate (Lactic Acid) 1.7 mmol/L (0.7-2.1)
[2022-05-20 12:03] LABS: Alanine Aminotransferase 33 IU/L (<50); Albumin 4.4 g/dL (3.5-5.0); Albumin Globulin Ratio 1.2 (1.0-2.8); Alkaline Phosphatase 68 U/L (38-126); Aspartate Aminotransferase 30 IU/L (17-59); Bilirubin Total 0.8 mg/dL (0.2-1.3); Blood Urea Nitrogen 10 mg/dL (9-20); Calcium 8.8 mg/dL (8.4-10.2); Carbon Dioxide 28 mmol/L (22-32); Chloride 100 mmol/L (98-107); Estimated Glomerular Filt Rate > 60 mL/min (>60); Globulin 3.6 g/dL (1.7-4.1); Glucose 90 mg/dL (70-100); HEMOLYSIS < 15 (0-50); Lipase 60 U/L (23-300); Potassium 3.9 mmol/L (3.4-5.1); Sodium 135 mmol/L (137-145)
[2022-05-20] MEDS: ACETAMINOPHEN 325 MG TABLET 650 MG PO (12:04)
[2022-05-20 12:19] LABS: Procalcitonin 0.06 ng/mL (<0.5)
[2022-05-20 13:52] LABS: Ethanol (ETOH) < 10 mg/dL
[2022-05-20 14:07] LABS: UR Morphine/Opiate cutoff 300 Negative (Negative); Ur Creatinine Normal (Normal); Ur Specific Gravity Normal (Normal); Urine Amphetamines Positive (Negative); Urine Cocaine Negative (Negative); Urine Tetrahydrocannabinol Negative (Negative); Urine pH Normal (Normal)
[2022-05-20 14:08] LABS: Urine Barbiturates Negative (Negative); Urine Benzodiazepines Positive (Negative); Urine MDMA Negative (Negative); Urine Methadone Negative (Negative); Urine Methamphetamines Positive (Negative); Urine Oxycodone Negative (Negative); Urine Phencyclidine Negative (Negative); Urine Tricyclic Antidepressant Negative (Negative)
--- NOTE | 2022-05-20 14:30 | CM.SWNOTE ---
MASTER FIRE CONTROL TECHNICIAN Assessment MASTER FIRE CONTROL TECHNICIAN - Unit Receptionist Assessment MASTER FIRE CONTROL TECHNICIAN/Unit Receptionist Assessment Time Spent with Patient Start date 05/20/22 Visit Start Time 13:15 End date 05/20/22 Visit End Time 13:40 Total time Care Management spent on 25 minutes patient visit-in minutes Substance Abuse Screening Include Onset, Duration, Intensity Presenting Problem Patient presents to ED due to concern for swelling in right hand after IV drug use. Patient endorses he used Xanax , Methamphetamine and ETOH today. Today endorses he is seeking detox. Precipitating Event(s) Patient endorses daily use and denies any sober supports. Patient Strengths Patient is seeking detox. Current Behavioral Health Provider(s) No current providers. Include Facility, Provider, Ph. # Family Hx of Behavioral Abuse None reported Rehab Facilities? ((Date(s), Location(s) Patient endorses hx of going ) to detox at least 10 times. Patient endorses that he most recently went to [facility] in [place] for detox in April 2019. Patient endorses hx of going to inpatient rehab at least 7 times. Patient endorses hx of going [facility] and [facility] in the last 3 years. History of Withdrawal? Seizures? Patient endorses hx of seizures when withdrawing from Benzodiazepines. Patient endorses his last seizure was in January 2022 and prior to that it was in August 2021. Patient endorses hx of shakes, crippling anxiety, and sleep paralysis. Longest Period of Sobriety 11.5 months, 10 years ago. Psychosocial information & Support Patient is 31 y/o male who Systems resides in [place]. Patient endorses he resides with partner Luanne but does not want her in ED room. Patient denies sober supports. School/Work Unemployed Legal Concerns Legal Matters - Outstanding Issues None reported Mental Status Orientation (Person/Place/Time) A/Ox3 Stated Mood okay Affect (Congruent with Mood?) euthymic, flat, congruent with mood, stable. Thought Content - Specify/Describe Patient endorses Obsessions, Delusions, Hallucinations hallucinations when withdrawing but does not go into detail. Thought Processes (Ovozwmj-Frcmhdrz-Gzjf coherent Mufbsxak-Vafcbftk-Jueqbdrqqw- Yohvefpwtbnzhc-Urppgbs-Xxmyrjdfaokj- Thought Blocking) Speech (Bvfwir-Erbo-Lcqytbq-Rapid-Soft- slow/soft Loud-Pressured) Motor (Yzkqru-Ldbrgodnh-Zccd-Other) normal Insight (Mkqs-Rbih-Vmub/Limited) fair Judgement (Ysea-Orwj-Qbxi/Limited) fair Impulse Control (Adequate-Impaired) adequate Memory (Xcdsloxjo-Pxaows-Ikkvba, intact, not formally assessed Impaired-Intact) Concentration (Intact-Impaired) intact Attention (Intact-Impaired) intact Behavior (Appropriate-Inappropriate) appropriate Additional Comment Patient presents as calm, cooperative and communicative. Risk Assessment Suicidal Ideation (Plan) No Homicidal Ideation (Plan) No Intervention Intervention MASTER FIRE CONTROL TECHNICIAN enters room to meet with patient. Patient endorses hx of long time polysubstance use and states he is seeking detox. Patient endorses hx of detox and inpatient rehab. Patient endorses his longest period of sobriety was for 11.5 months about 10 years ago. Patient endorses his last use was this morning when he used Methamphetamine, 1 drink of mixed drink ETOH and xanax 12 hours ago. Patient endorses some days he takes 6-7 bars of xanax. Patient endorses hx of Herion use but stated he stopped using herion. Patient endorses hx of rx Valium and rx Suboxone. Patient denies current PCP. Patient's toxicology is positve for Methamphetamine, Amphetamine and Benzodiazepines. It is the opinion of this MASTER FIRE CONTROL TECHNICIAN that patient is appropriate for and will benefit from voluntary detox for medication management and crisis stabilization. MASTER FIRE CONTROL TECHNICIAN reviews the above with ED provider who indicates agreement and understanding. ED provider reports that patient is medically clear and will need rx for antibiotics which ED provider can provide. Plan RA Plan MASTER FIRE CONTROL TECHNICIAN to seek voluntary medical detox bed for patient. SANDRA SchraderSW
--- NOTE | 2022-05-20 16:21 | PC.NURSE ---
Pt states he drinks a 5th of rum everyday and takes at least 5 xanax pills daily plus klonopin and valium when available. Pt states the xanax pills aren't really xanax, they are street pills, they are pressed . Physician aware.
[2022-05-20] MEDS: PHENobarbital 65 MG/ML VIAL 260 MG IV (16:25)
--- NOTE | 2022-05-20 16:58 | PC.NURSE ---
Pt resting quietly with eyes closed, pt on the monitor, bilateral chest rise and fall noted. In no apparent distress.
--- NOTE | 2022-05-20 19:21 | CM.SWNOTE ---
TEMPLATE CLERK Note Medical Detox Search: TEMPLATE CLERK calls [facility] and leaves requesting return call. TEMPLATE CLERK calls [facility], it is reported they do not accepted [facility] Medicaid. TEMPLATE CLERK calls [facility], it is reported they do not have detox beds. TEMPLATE CLERK calls [facility], it is reported they have beds but no intake times until after 10 pm. TEMPLATE CLERK to inform [facility]. TEMPLATE CLERK calls [facility] for detox bed, it is reported they have no beds but will call back if a bed opens up. TEMPLATE CLERK calls [facility], it is reported they have beds and can review patient, TEMPLATE CLERK faxes clinicals. It is later reported that they do not accept patient's [employer] insurance. TEMPLATE CLERK calls [facility], it is reported that there are no detox beds in the [facility] and [place] locations. TEMPLATE CLERK calls [facility], it is reported that they have detox beds, TEMPLATE CLERK faxes clinicals for review. TEMPLATE CLERK calls back at 1800 and it is reported they are still reviewing patient. TEMPLATE CLERK calls [facility] and leaves requesting return call. TEMPLATE CLERK calls [facility] regarding detox bed, it is reported they have no beds. Plan: F/u with [facility] and [facility], and f/u with patient's plan of care. Christine Ann, SCAN COORDINATOR
--- NOTE | 2022-05-20 22:22 | PC.NURSE ---
pt ambulatory to the bathroom. complaining about everything, pt asking when she can leave, explained to pt that would be when she sobered up and we were sure she was not suicidal, pt rude and belligerent
[2022-05-21] VITALS (7 sets, daily range): BP systolic 122–130; BP diastolic 77–82; PULSE 68–90; RESP 16–19; O2SAT 91–100
[2022-05-21] MEDS: ACETAMINOPHEN 325 MG TABLET 650 MG PO (00:46)
--- NOTE | 2022-05-21 01:35 | PC.NURSE ---
Pt spoke with intake screener at [facility]. Pt states call went fine,I Don't want to go there
--- NOTE | 2022-05-21 02:28 | PC.NURSE ---
Dr Knott in to speak with pt
== END 2022-05-21 02:32 | disposition home or self-care (01) ==
PROVIDERS: Emergency Medicine; Emergency Provider Emergency Medicine
DX: L03.113 Cellulitis of right upper limb (principal); Z20.822 Contact with and (suspected) exposure to COVID-19
CPT/HCPCS: 36415; 73130; 80053; 80305; 80320; 83605; 83690; 84145; 85025; 87040; 87635; 96365; 96366; 96375; 99284; C9803; J2560

== ENCOUNTER → 2022-06-03 09:19 | Outpatient (CLI) | payer OTHER, MEDICAID, SELFPAY ==
--- NOTE | 2022-06-03 09:20 | DI.RAD.S_ITS ---
PROCEDURE: XR WRIST RT MIN 3V INDICATIONS: Wrist pain TECHNIQUE: 4 views of the wrist were acquired. COMPARISON: None. FINDINGS: Bones: No fractures or dislocations. No suspicious bony lesions. Scaphoid view: Scaphoid intact Soft tissues: No suspicious soft tissue calcifications. IMPRESSION: No evidence acute bony abnormality of the right wrist. If clinical suspicion and/or symptoms persist, further assessment with repeat plain films, or advanced imaging (e.g., CT, MRI, or bone scan) may be helpful for further assessment. Dictated by: Rod Maza M.D. on 06/03/2022 at 11:58 Approved by: Rod Maza M.D. on 06/03/2022 at 11:59
--- NOTE | 2022-06-03 09:20 | DI.RAD.S_ITS ---
PROCEDURE: XR HAND RT MIN 3V INDICATIONS: Hand pain TECHNIQUE: 3 views of the hand(s) acquired. COMPARISON: [facility], , XR HAND RT MIN 3V, 05/20/2022, 11:40. FINDINGS: Bones: No fractures or dislocations. Carpal bones are normally aligned. No suspicious bony lesions. Soft tissues: No suspicious soft tissue calcifications. IMPRESSION: No evidence acute bony abnormality of the right hand Dictated by: Rod Maza M.D. on 06/03/2022 at 11:59 Approved by: Rod Maza M.D. on 06/03/2022 at 11:59
== END ==
PROVIDERS: Referring Provider Nurse Practitioner Family; Visit Provider Nurse Practitioner Family
DX: M25.531 Pain in right wrist (principal)
CPT/HCPCS: 73110; 73130